=== PATIENT | male | born 2000 | race African-American/Black ===

== ENCOUNTER 2023-06-15 10:24 | Emergency (ER) | payer BC | END 2023-06-15 11:05 | disposition home or self-care (01) | LOC: CSHERS 10:24 | DX: S81.852A Open bite, left lower leg, initial encounter (principal); L03.116 Cellulitis of left lower limb; W57.XXXA Bitten or stung by nonvenomous insect and other nonvenomous arthropods, initial encounter | CPT/HCPCS: 99283 ==